=== PATIENT | male | born 1995 | race Caucasian/White ===

== ENCOUNTER 2016-08-26 17:04 | Emergency (ER) | payer SELFPAY ==
--- NOTE | 2016-08-26 17:30 | ED Physician Chart ---
Chief Complaint/HPI - Patient Information Date Seen:: 08/26/16 Time Seen:: 17:09 Chief Complaint:: forehead laceration History of Present Illness:: 21-year-old male, brought in by police after being arrested, with acute, mild, forehead laceration that happened about 20 minutes prior to arrival when he was put into the back of a police car and had a self-inflicted head injury as he banged his head against the plexiglass arrest cage in the back of the patrol car. Had some associated very light pain. No LOC, nausea, vomiting, acute vision changes. Historian:: Patient, Other (police) Review:: Nurse's Note Reviewed Review of Systems - Review of Systems Other: Complete system review otherwise unremarkable except as noted in HPI. Past Medical History - Past Medical History Past Medical History: No significant medical hx Family History: None Social History: Non Smoker, Alcohol, No Drug Use, Employed Surgical History: None Psychiatricy History: None Medication: None Family Medical History - Family Member Mother History Unknown: Yes Physical Exam - Physical Examination Other:: INITIAL VITAL SIGNS: Reviewed by me GENERAL: Alert and interactive. No acute distress HEAD: Head is normocephalic and with a 1 cm superficial laceration to the center forehead. EYES: EOMI. . No scleral icterus. No conjunctival injection ENT: Moist mucous membranes. NECK: Supple. No masses. Full range of motion RESPIRATORY: No tachypnea. Clear breath sounds bilaterally. No wheezing, rales, or rhonchi CV: Regular rate and rhythm. No murmurs, rubs, or gallops ABDOMEN: Soft, non-distended, non-tender. No guarding. No rebound. No masses. EXTREMITIES: No deformity. No cyanosis. No edema. SKIN: Warm and dry. No obvious rashes. NEUROLOGIC: Alert and oriented. Face is symmetric. Speech is normal. Moves all extremities equally. Motor and sensory distally intact. Assessment - Procedures Procedures:: Laceration Repair with dermabond by me: Anesthesia: None Location: Forehead Tendon/Joint/Nerves: No injury Foreign body: None detected after copious irrigation and exploration Technique: Tissue adhesive Complexity: No subcutaneous sutures/mucosal repair/edge excision Post Closure Length: 1 cm Patient's bleeding was easily controlled in the department and there is no indication of anemia. No evidence of compartment syndrome, neurologic injury, vascular injury, open joint, tendon laceration, or foreign body. Patient is appropriate for outpatient follow up. 48 hour wound check. Scar minimization instructions given. Informed Consent: Procedure/risk/benefits explained by MD: Yes ED Septic Shock - . Is Septic Shock (SBP<90, OR Lactate>4 mmol\L) present?: No Reassessment (Disposition) - Reassessment Reassessment:: The patient's blood pressure was elevated (>120/80) but appears stable without evidence of hypertensive emergency or urgency. The patient was counseled about the risks hypertension urged to pursue outpatient monitoring and therapy within a week with her primary care physician. Minor laceration of the forehead. Area cleansed and flushed with saline. Patient says he has updated tetanus within the last 5 years. Surgical glue applied. Tolerated well. Follow up wound check 2-3 days. Gave return to ER precautions. Released to police for okay to book. - Diagnosis Diagnosis:: Forehead laceration, acute Pre-hypertension - Aftercare/Follow up Instructions Aftercare/Follow-Up Instructions:: Counseled pt regarding lab results/diagnosis & need follow up, Refer to Discharge Instructions - Patient Disposition Discharge/Transfer:: Long-Term/Detention Time:: 17:29 Condition at Disposition:: Improved ED Discharge Plan - Patient Disposition Admit/Discharge/Transfer: PT DISCHARGED HOME Condition at Disposition: Improved Instructions: Tissue Adhesive Wound Care
== END 2016-08-26 17:38 | disposition home or self-care (01) ==
LOC: ER 17:04
DX: S01.81XA Laceration without foreign body of other part of head, initial encounter (principal); X83.8XXA Intentional self-harm by other specified means, initial encounter; Y93.89 Activity, other specified; Y92.89 Other specified places as the place of occurrence of the external cause; Y99.8 Other external cause status
CPT/HCPCS: 12011; Z7502; Z7610